=== PATIENT | female | born 1935 | race Caucasian/White ===

== ENCOUNTER 2018-02-13 11:23 | Day surgery (SDC) | payer MEDICARE ==
[~2018-02-13] VITALS: Ht 162.6 cm; Wt 96.4 kg
[~2018-02-13 11:23] MED LIST: ACET1TAB64 PO; AMLO5TAB4 PO; ASPI-621 PO; ASPI-650 PO; ATOR40TA78 PO; BUME2TAB PO; BUTA1CAP28 PO; METO200T2 PO; PANT40TA5 PO; PHEN100C PO; POTA20TA89 PO; SLOW-MAG PO; VALS1TAB15 PO; ZOLP10TA PO
[2018-02-13] MEDS ORDERED: LACTATED RINGERS 1,000 ML IV SCH (11:54)
[2018-02-13] MEDS ORDERED: LIDOCAINE-MPF 1%, 2ML INFIL ONE (12:00)
[2018-02-13] MEDS ORDERED: EPHEDRINE 50 MG/ML, 1ML ONE (13:16)
[2018-02-13] MEDS ORDERED: ONDANSETRON 2MG/ML, 2ML ONE (13:16)
[2018-02-13] MEDS ORDERED: PROPOFOL 10 MG/ML, 20ML ONE (13:16)
[2018-02-13] MEDS ORDERED: PHENYLEPHRINE 10 MG/ML ONE (13:16)
[2018-02-13] MEDS ORDERED: DEXAMETHASONE 4 MG/ML, 1ML ONE (13:16)
[2018-02-13] MEDS ORDERED: ROCURONIUM 10MG/ML,5ML ONE (13:16)
[2018-02-13] MEDS ORDERED: FENTANYL PF 100 MCG/2ML ONE ×2 (13:34→13:54)
[2018-02-13] MEDS ORDERED: OXYcodone 5 MG/5 ML ORAL.SOL UDC PO PRN (15:00)
[2018-02-13] MEDS ORDERED: ONDANSETRON 2MG/ML, 2ML IV PRN (15:00)
[2018-02-13] MEDS ORDERED: ACETAMINOPHEN 325 MG TABLET PO PRN (15:00)
[2018-02-13] MEDS ORDERED: ONDANSETRON ODT 8 MG PO PRN (15:00)
[2018-02-13] MEDS ORDERED: FENTANYL PF 100 MCG/2ML IV PRN (15:00)
[2018-02-13] MEDS ORDERED: ACETAMINOPHEN 500 MG TABLET ONE (16:15)
== END 2018-02-13 17:25 ==
LOC: OUT 11:23
PROVIDERS: ATTEND Internal Medicine Geriatric Medicine
DX: K55.20 Angiodysplasia of colon without hemorrhage (principal); D64.9 Anemia, unspecified; J44.9 Chronic obstructive pulmonary disease, unspecified; I25.10 Atherosclerotic heart disease of native coronary artery without angina pectoris; Z98.890 Other specified postprocedural states; Z88.6 Allergy status to analgesic agent; Z88.0 Allergy status to penicillin; Z88.8 Allergy status to other drugs, medicaments and biological substances
CPT/HCPCS: 45388; 82962; J1100; J2370; J2405; J2704; J3010; J3490; J7120

== ENCOUNTER 2018-04-17 11:01 | Day surgery (SDC) | payer MEDICARE ==
[2018-04-11 09:26] VITALS: BP 140/85
[~2018-04-17] VITALS: Ht 165.1 cm; Wt 96.0 kg
[~2018-04-17 11:01] MED LIST changes: +METF500T17 PO
[2018-04-17] MEDS ORDERED: LACTATED RINGERS 1,000 ML IV SCH (11:47)
[2018-04-17 11:49] VITALS: BP 140/85
[2018-04-17] MEDS ORDERED: LIDOCAINE-MPF 1%, 2ML INFIL ONE (12:00)
[2018-04-17] MEDS ORDERED: ONDANSETRON 2MG/ML, 2ML ONE (12:20)
[2018-04-17] MEDS ORDERED: DEXAMETHASONE 4 MG/ML, 1ML ONE (12:20)
[2018-04-17] MEDS ORDERED: METOCLOPRAMIDE 5 MG/ML, 2ML ONE (12:20)
[2018-04-17] MEDS ORDERED: SUCCINYLCHOLINE 20 MG/ML, 10ML ONE (12:20)
[2018-04-17] MEDS ORDERED: PROPOFOL 10 MG/ML, 20ML ONE (12:20)
[2018-04-17] MEDS ORDERED: MIDAZOLAM 1 MG/ML, 2ML ONE (12:21)
[2018-04-17] MEDS ORDERED: FENTANYL PF 100 MCG/2ML ONE (12:21)
[2018-04-17] MEDS ORDERED: LABETALOL 5MG/ML, 20ML IV PRN (14:00)
[2018-04-17] MEDS ORDERED: MIDAZOLAM 1 MG/ML, 2ML IV PRN (14:00)
[2018-04-17] MEDS ORDERED: MEPERIDINE/PF 25MG/0.5ML IVPush PRN (14:00)
[2018-04-17] MEDS ORDERED: OXYcodone 5 MG/5 ML ORAL.SOL UDC PO PRN (14:00)
[2018-04-17] MEDS ORDERED: FENTANYL PF 100 MCG/2ML IV PRN (14:00)
[2018-04-17] MEDS ORDERED: HYDROmorphone 1 MG/ML, 1ML IV PRN (14:00)
[2018-04-17] MEDS ORDERED: ONDANSETRON 2MG/ML, 2ML IVPush PRN (14:00)
== END 2018-04-17 15:55 | disposition home or self-care (01) ==
LOC: OUT 11:01
PROVIDERS: ATTEND Internal Medicine Geriatric Medicine
DX: K55.20 Angiodysplasia of colon without hemorrhage (principal); I25.2 Old myocardial infarction; J44.9 Chronic obstructive pulmonary disease, unspecified; Z99.81 Dependence on supplemental oxygen; Z88.6 Allergy status to analgesic agent; Z88.0 Allergy status to penicillin; Z88.8 Allergy status to other drugs, medicaments and biological substances
CPT/HCPCS: 44369; 82962; J0330; J1100; J2250; J2405; J2704; J2765; J3010; J7120